=== PATIENT | male | born 1980 | race Caucasian/White ===

== ENCOUNTER 2020-01-31 14:15 | Emergency (ER) | payer BC, SELFPAY ==
--- NOTE | 2020-01-31 14:12 | ECG_ITS ---
APPROVED REPORT Exam: Resting ECG HR:92 bpm ECG Measurements Heart Rate 92 AXES UT 148 P 55 QRSd 106 QRS 29 QT 356 T 21 QTc 440 <Conclusion> Normal sinus rhythm Normal ECG Electronically signed by : Steven Milian, 01/31/2020 17:31:53
[2020-01-31 14:16] VITALS: BP 165/97; PULSE 86; RESP 16; TEMP 36.6; O2SAT 96; BMI 39.4
--- NOTE | 2020-01-31 14:24 | XR_ITS ---
PROCEDURE: XR CHEST PORTABLE CLINICAL HISTORY: chest pain Chest pain, shortness of breath COMPARISON: CT ANGIO CHEST from 01/31/2020 FINDINGS: The cardiomediastinal silhouette and pulmonary vascularity are within normal limits. No lobar consolidation or collapse. Nodular opacity is present in the left mid lower lung zone at 10 mm but not readily apparent on the CT scan. There is a 5 mm nodular opacity in the left lower lobe which may account for part of this finding. This could also be due to an artifact from of monitor lead as a similar density is noted in the right upper chest. No acute bony abnormalities. IMPRESSION: No acute findings. Dictated by: Theodore Moran MD 01/31/2020 16:01 Electronically signed by Theodore Moran MD in [place] 01/31/2020 16:01
[2020-01-31 14:33] VITALS: BP 157/92; BP 170/97
--- NOTE | 2020-01-31 14:34 | CT_ITS ---
PROCEDURE: CT ANGIO CHEST CLINCIAL INDICATION: r/o dissection Shortness of air, chest pain COMPARISON: No exams were available for comparison TECHNIQUE: IV Contrast: 70ML OPTIRAY 350 Axial images obtained with sagittal and coronal reformats. All CT scans at the facility use one or more dose reduction, viz: automated exposure control, ma/kV adjustment per patient size (including targeted exams where dose is matched to indication, i.e. head), or iterative reconstruction technique. FINDINGS: HEART AND MEDIASTINAL STRUCTURES: No evidence of aortic aneurysm or dissection. No central pulmonary embolus apparent. No mediastinal or hilar mass or adenopathy LUNGS AND PLEURAL SPACES: There is minimal nodular thickening of the major fissure centrally nonspecific. No lobar consolidation or collapse. There is a 5 mm noncalcified left upper lobe nodule BONY STRUCTURES: Mild degenerative changes are present in the thoracic spine. No acute bony findings. UPPER ABDOMEN: There are multiple gallstones present. There is mild splenomegaly at 14 cm ADDITIONAL FINDINGS: No other significant abnormalities. IMPRESSION: 1. No acute thoracic findings. No evidence of aortic dissection 2. Cholelithiasis Dictated by: Theodore Moran MD 01/31/2020 15:16 Electronically signed by Theodore Moran MD in [facility] 01/31/2020 15:16
--- NOTE | 2020-01-31 14:40 | PC.NURSE ---
Pt to rad.
[2020-01-31 14:43] LABS: Basophils # 0.1 K/mm3 (0-0.2); Basophils % 0.9 % (0.1-2.0); Eosinophils # 0.2 K/mm3 (0.0-0.4); Eosinophils % 2.1 % (0.1-12.0); Hematocrit 47.5 % (42.0-52.0); Hemoglobin 16.2 g/dL (14.1-18.0); Lymphocytes # 6.5 K/mm3 (0.7-4.5); Lymphocytes % 58.5 % (10-50); Mean Corpuscular HGB Conc 34.2 g/dL (31.8-35.4); Mean Corpuscular Hemoglobin 30.8 pg (27.0-31.2); Mean Corpuscular Volume 90.1 fl (80-94); Mean Platelet Volume 7.6 fl (7.4-10.4); Monocytes # 4.2 K/mm3 (0.1-1.0); Monocytes % 37.6 % (1.7-9.3); Neutrophils # 0.1 K/mm3 (1.8-7.8); Neutrophils % 0.9 % (37.0-80.0); Platelet Count 291 K/mm3 (142-424); Red Blood Count 5.27 M/mm3 (4.60-6.20); Red Cell Distribution Width 12.9 % (11.5-17.5); White Blood Count 11.1 K/mm3 (4.8-10.8)
[2020-01-31 14:47] LABS: MANUAL DIFFERENTIAL MANUAL DIFFERENTIAL (MANUAL DIFF)
[2020-01-31 14:52] LABS: Lymphocytes % 24 % (10-50); Monocytes % 2 % (2-9); Neutrophils % 74 % (42-76); Platelet Estimate Normal; RBC Morphology Normal; Total Cells Counted 100
--- NOTE | 2020-01-31 14:59 | PC.NURSE ---
Pt returned from rad.
[2020-01-31 15:02] VITALS: BP 147/83; PULSE 85; O2SAT 96
[2020-01-31 15:02] LABS: Anion Gap 14.9 mEq/L (5-15); Blood Urea Nitrogen 9 mg/dl (9-20); Calcium 9.5 mg/dl (8.4-10.2); Carbon Dioxide 27 mmol/L (22.0-30.0); Chloride 101 mmol/L (98-107); Creatinine Clearance Estimated 217 mL/min (50-200); Estimated Glomerular Filt Rate 107 ml/min (>60); GFR (African American) 130 ML/MIN (>60); Glucose 142 mg/dl (74-100); Potassium 3.9 mmoL/L (3.5-5.1); Sodium 139 mmol/L (136-145)
--- NOTE | 2020-01-31 15:06 | [facility]H.EDCP ---
ED Disposition Clinical Impression: Chest pain, atypical Disposition: Home, Self-Care Condition on Discharge: Fair Instructions: DI for Atypical Chest Pain Additional Instructions: Have been evaluated for chest pain. Please follow-up with your primary care doctor this week. It is very important that you see a grain miller helper within the next few days. It does not appear that you are having a heart attack right now, but I do have concern that you have coronary artery disease. Please take Tylenol and ibuprofen. Return to the emergency department at once if you have any new or worsening chest pain. Referrals: Fausto Ayala [Primary Care Provider] - Time of Disposition: 17:35 - Critical Care Critical Care Time: No Attestation: On 01/31/20, the high probability of a clinically significant, sudden or life threatening deterioration of the following system(s) required my full and direct attention, intervention and personal management. The time I documented below is in addition to time spent performing reported procedures but includes the following listed in this critical care notation. Medical Decision Making - Hitesh Inquiry Pt receiving controlled substance: No Vital Signs: 01/31/20 14:16 01/31/20 14:33 01/31/20 15:02 Temperature 98 F Temperature Source Oral Pulse Rate [Left Radial] 86 85 Respiratory Rate 16 Blood Pressure [Left Arm] 157/92 H 147/83 H Blood Pressure [Right Arm] 165/97 H 170/97 H Blood Pressure Mean [Left Arm] 113 104 Blood Pressure Mean [Right Arm] 119 121 Blood Pressure Source [Left Arm] Automatic Cuff Blood Pressure Position [Left Arm] Sitting Blood Pressure Position [Right Arm] Sitting Sitting 02 Sat by Pulse Oximetry 96 96 Oxygen Delivery Method Room Air Room Air 01/31/20 16:03 01/31/20 16:51 Temperature Temperature Source Pulse Rate [Left Radial] 84 73 Respiratory Rate Blood Pressure [Left Arm] 124/61 144/80 H Blood Pressure [Right Arm] Blood Pressure Mean [Left Arm] 82 101 Blood Pressure Mean [Right Arm] Blood Pressure Source [Left Arm] Automatic Cuff Automatic Cuff Blood Pressure Position [Left Arm] Sitting Sitting Blood Pressure Position [Right Arm] 02 Sat by Pulse Oximetry 99 98 Oxygen Delivery Method Room Air Room Air - Lab Data Lab Results 01/31/20 14:30: WBC 11.1 H, RBC 5.27, Hgb 16.2, Hct 47.5, MCV 90.1, MCH 30.8, MCHC 34.2, RDW 12.9, Plt Count 291, MPV 7.6, Neut % (Auto) 0.9 L, Lymph % (Auto) 58.5 H, [place] % (Auto) 37.6 H, Eos % (Auto) 2.1, Baso % (Auto) 0.9, Neut # (Auto) 0.1 L*, Lymph # (Auto) 6.5 H, [place] # (Auto) 4.2 H, Eos # (Auto) 0.2, Baso # (Auto) 0.1, Total Counted 100, Neutrophils % (Manual) 74, Lymphocytes % (Manual) 24, Monocytes % (Manual) 2, Differential Comment , Platelet Estimate Normal, RBC Morphology Normal 01/31/20 14:30: Sodium 139, Potassium 3.9, Chloride 101, Carbon Dioxide 27, Anion Gap 14.9, BUN 9, Creatinine 0.80, Estimated Creat Clear 217, Estimated GFR 107, Est GFR ( Amer) 130, Glucose 142 H, Calcium 9.5, Troponin I < 0.01 01/31/20 14:30: Monoscreen Negative 01/31/20 16:34: Troponin I < 0.01 Result diagrams: 01/31/20 14:30 01/31/20 14:30 Orders (Tests/Meds): ED MEDICATIONS Discontinued Medications Generic Name Dose Route Start Last Admin Trade Name Freq PRN Reason Stop Dose Admin Aspirin 324 mg 01/31/20 15:13 01/31/20 15:26 Aspirin 81mg Chewable Tablet PO 01/31/20 15:14 324 mg ONCE ONE Administration Ioversol 100 ml 01/31/20 14:55 01/31/20 14:56 Rad-Optiray 350 100ml Vial IV 01/31/20 14:56 100 ml ONCE ONE Administration Protocol Sodium Chloride 50 ml 01/31/20 14:55 01/31/20 14:56 Rad-Ns 50ml Vial IV 01/31/20 14:56 50 ml ONCE ONE Administration Sodium Chloride 10 ml 01/31/20 14:55 01/31/20 14:56 Rad-Saline Flush 10ml Syringe IV 01/31/20 14:56 10 ml ONCE ONE Administration ORDERS Category Date Time Status Troponin I Q3H Lab 01/31/20 20:30 O
[2020-01-31 15:17] LABS: Troponin I < 0.01 ng/ml (0.00-0.034)
--- NOTE | 2020-01-31 15:35 | PC.NURSE ---
notified rad of new blood work on pt ordered per ER MD
[2020-01-31 15:53] LABS: Monoscreen (Rapid) Negative (Negative)
[2020-01-31 16:03] VITALS: BP 124/61; PULSE 84; O2SAT 99
[2020-01-31 16:51] VITALS: BP 144/80; PULSE 73; O2SAT 98
[2020-01-31 17:15] LABS: Troponin I < 0.01 ng/ml (0.00-0.034)
[2020-01-31 17:53] VITALS: BP 123/74; PULSE 69; RESP 16; TEMP 36.6; O2SAT 98
== END 2020-01-31 17:55 | disposition home or self-care (01) ==
PROVIDERS: Emergency Provider Emergency Medicine; PCP Family Medicine
DX: R07.89 Other chest pain (principal); I10 Essential (primary) hypertension; Z87.891 Personal history of nicotine dependence; Z79.899 Other long term (current) drug therapy
CPT/HCPCS: 71045; 71275; 80048; 84484; 85007; 85025; 86318; 93005; 99284; Q9967

== ENCOUNTER 2021-05-27 14:15 | Emergency (ER) | payer OTHER, SELFPAY ==
--- NOTE | 2021-05-27 14:15 | ECG_ITS ---
APPROVED REPORT Exam: Resting ECG HR:76 bpm ECG Measurements Heart Rate 76 AXES PA 154 P 49 QRSd 102 QRS 40 QT 378 T 28 QTc 425 Conclusion Normal sinus rhythm Late R wave progression, unchanged from prior Abnormal ECG Electronically signed by : Parth Mcnair MD 05/29/2021 17:51:03
[2021-05-27 14:21] VITALS: BP 121/73; PULSE 83; RESP 16; TEMP 36.6; O2SAT 97; BMI 37.3
--- NOTE | 2021-05-27 14:23 | XR_ITS ---
PROCEDURE: XR CHEST PORTABLE CLINICAL HISTORY: cp COMPARISON: CR XR CHEST PORTABLE from 01/31/[address] ANGIO CHEST from 01/31/2020 FINDINGS: The cardiomediastinal silhouette and pulmonary vascularity are within normal limits. The lungs are clear without infiltrates, suspicious nodules, or pleural effusions. There is elevation of the right hemidiaphragm. No acute bony findings. IMPRESSION: No acute findings. Dictated by: Theodore Moran MD 05/27/2021 14:49 Theodore Moran MD in [place] 05/27/2021 14:49
[2021-05-27 14:38] LABS: Basophils # 0.1 K/mm3 (0-0.2); Eosinophils # 0.2 K/mm3 (0.0-0.4); Eosinophils % 2.2 % (0.1-12.0); Hematocrit 40.4 % (42.0-52.0); Hemoglobin 13.7 g/dL (14.1-18.0); Lymphocytes # 4.9 K/mm3 (0.7-4.5); Lymphocytes % 59.2 % (10-50); Mean Corpuscular Hemoglobin 30.8 pg (27.0-31.2); Mean Corpuscular Volume 90.6 fl (80-94); Neutrophils # 0.1 K/mm3 (1.8-7.8); Platelet Count 313 K/mm3 (142-424); Red Blood Count 4.46 M/mm3 (4.60-6.20); Red Cell Distribution Width 12.9 % (11.5-17.5); White Blood Count 8.2 K/mm3 (4.8-10.8)
[2021-05-27 14:40] LABS: Neutrophils % 0.6 % (37.0-80.0)
[2021-05-27 14:42] LABS: MANUAL DIFFERENTIAL MANUAL DIFFERENTIAL (MANUAL DIFF)
[2021-05-27 14:44] LABS: Chloride 107 mmol/L (98-107); Sodium 142 mmol/L (136-145)
[2021-05-27 14:46] LABS: Blood Urea Nitrogen 14 mg/dl (9-20); Creatinine Clearance Estimated 203 mL/min (50-200); Estimated Glomerular Filt Rate 107 ml/min (>60); GFR (African American) 129 ML/MIN (>60)
[2021-05-27 14:47] LABS: Alanine Aminotransferase 23 U/L (12-78); Albumin Level 4.4 g/dl (3.5-5.0); Albumin/Globulin Ratio 1.4 (1.1-1.8); Alkaline Phosphatase 59 U/L (38-126); Aspartate Amino Transferase 28 U/L (17-59); Bilirubin,Total 0.4 mg/dl (0.2-1.3); Calcium 9.1 mg/dl (8.4-10.2); Carbon Dioxide 25 mmol/L (22.0-30.0); Globulin 3.1 g/dL (1.3-3.2); Glucose 142 mg/dl (74-100); Total Protein,Serum 7.5 g/dl (6.3-8.2)
--- NOTE | 2021-05-27 14:49 | HMH.EDGENADL ---
ED Disposition Clinical Impression: Atypical chest pain Disposition: Home, Self-Care Condition on Discharge: Good Additional Instructions: Follow-up with your audiometrist in the next few days. Return to emergency department chest pain, shortness of breath. Referrals: Provider,Referral, [Primary Care Provider] - 3 days Time of Disposition: 15:20 - Critical Care Critical Care Time: No Attestation: On , the high probability of a clinically significant, sudden or life threatening deterioration of the following system(s) required my full and direct attention, intervention and personal management. The time I documented below is in addition to time spent performing reported procedures but includes the following listed in this critical care notation. Medical Decision Making - Medical Records Medical records reviewed: Yes: I reviewed the patient's medical records. - Hitesh Inquiry Pt receiving controlled substance: No Vital Signs: 05/27/21 14:21 Temperature 97.8 F Temperature Source Oral Pulse Rate [Right Radial] 83 Respiratory Rate 16 Blood Pressure [Right Arm] 121/73 Blood Pressure Mean [Right Arm] 89 Blood Pressure Source [Right Arm] Automatic Cuff Blood Pressure Position [Right Arm] Sitting 02 Sat by Pulse Oximetry 97 Oxygen Delivery Method Room Air - Lab Data Lab results reviewed: Yes: I reviewed the patient's lab results. Lab Results 05/27/21 14:30: WBC 8.2, RBC 4.46 L, Hgb 13.7 L, Hct 40.4 L, MCV 90.6, MCH 30.8, MCHC 34.0, RDW 12.9, Plt Count 313, MPV 8.0, Neut % (Auto) 0.6 L, Lymph % (Auto) 59.2 H, [place] % (Auto) 37.0 H, Eos % (Auto) 2.2, Baso % (Auto) 1.0, Neut # (Auto) 0.1 L*, Lymph # (Auto) 4.9 H, [place] # (Auto) 3.0 H, Eos # (Auto) 0.2, Baso # (Auto) 0.1, Total Counted 100, Neutrophils % (Manual) 77 H, Lymphocytes % (Manual) 20, Monocytes % (Manual) 2, Eosinophils % (Manual) 1, Platelet Estimate Normal, RBC Morphology Normal 05/27/21 14:30: Sodium 142, Potassium 4.0, Chloride 107, Carbon Dioxide 25, Anion Gap 14.0, BUN 14, Creatinine 0.80, Estimated Creat Clear 203, Estimated GFR 107, Est GFR ( Amer) 129, Glucose 142 H, Calcium 9.1, Total Bilirubin 0.4, AST 28, ALT 23, Alkaline Phosphatase 59, Troponin I < 0.01, Total Protein 7.5, Albumin 4.4, Globulin 3.1, Albumin/Globulin Ratio 1.4 Result diagrams: 05/27/21 14:30 05/27/21 14:30 - Radiology Data #1 Image(s): Chest Image Reviewed: Yes I reviewed the patient's radiology results Preliminary Findings: Normal/NAD - ECG Data Tracing #1 I reviewed this ECG and interpreted as documented below: Normal sinus rhythm, 76 bpm, no ST elevation or depression, no ectopy, normal intervals. ECG initial impression date: 05/27/21 ECG initial impression time: 14:20 - DESIRE Score for Non-Stemi Age of Patient: 40-49 years old Heart Rate: 70-89 bpm Systolic Blood Pressure: 120-139 mmhg Serum Creatinine: 0.80-1.19 mg/dl CHF [place] Class: IV-Cardiogenic Shock Other Risk Factors: None Non-Stemi Risk Score: 134 Medical Decision Narrative: 40yo M evaluated for chest pain. Patient no acute distress on initial evaluation. Differential diagnosis includes but not limited to: ACS/[place], pneumonia, GERD, emotional disturbance/anxiety, pneumothorax, aortic injury. Heart score is 2. Patient is established with a audiometrist. Laboratory studies are unremarkable. EKG is unremarkable as above. Patient is appropriate and stable for discharge home. General Adult HPI - General Chief complaint: Chest Pain Stated complaint: chest pain Time Seen by Provider: 05/27/21 14:35 Mode of Arrival: Ambulatory Limitations: No Limitations Description of Symptoms (Recalled from ER Triage Doc. 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 Pt states pain lasted approx only 5 minutes. Pt denies chest pain upon arrival to ED. - History of Present Illness HPI narrative: 40yo M presents
[2021-05-27 14:56] LABS: Eosinophils % 1 % (0-3); Lymphocytes % 20 % (10-50); Monocytes % 2 % (2-9); Neutrophils % 77 % (42-76); Platelet Estimate Normal; RBC Morphology Normal; Total Cells Counted 100
[2021-05-27 15:02] LABS: Troponin I < 0.01 ng/ml (0.00-0.034)
[2021-05-27 15:25] VITALS: BP 121/73; PULSE 83; RESP 16; TEMP 36.6; O2SAT 97
== END 2021-05-27 15:25 | disposition home or self-care (01) ==
PROVIDERS: Emergency Provider Family Medicine
DX: R07.89 Other chest pain (principal); I10 Essential (primary) hypertension; I25.10 Atherosclerotic heart disease of native coronary artery without angina pectoris
CPT/HCPCS: 71045; 80053; 84484; 85007; 85025; 93005; 99283

== ENCOUNTER 2022-07-03 09:52 | Emergency (ER) | payer OTHER, SELFPAY ==
[2022-07-03 10:55] VITALS: BP 151/95; PULSE 74; RESP 21; TEMP 36.9; O2SAT 100; BMI 43.0
[2022-07-03 11:18] LABS: UTC Influenza A Antigen Negative (Negative); UTC Strep Screen (Rapid) Negative (Negative)
[2022-07-03 11:19] LABS: UTC Influenza B Antigen Negative (Negative)
--- NOTE | 2022-07-03 11:29 | EXP.UTC ---
Discharge Plan Disposition Patient Disposition: Home, Self-Care Condition: Good Prescriptions Prescriptions: New nystatin 100,000 unit/mL suspension 4 ml PO QID 10 Days Qty: 160 0RF Rx Instructions: 4 ml in mouth swish and spit azithromycin [Zithromax Z-Claus] 250 mg tablet See Rx Instructions .ROUTE .COMPLEX 5 Days Qty: 6 0RF Rx Instructions: For 250 mg dose pack: take 500 mg today (day 1), then 250 mg for 4 days (days 2-5) methylprednisolone [Medrol (Claus)] 4 mg tablets,dose pack See Rx Instructions .Route .COMPLEX 6 Days Qty: 21 0RF Rx Instructions: taper pack; No Action metoprolol succinate 200 mg tablet extended release 24 hr 200 mg PO DAILY Label Comments: TAKE 1 TABLET BY MOUTH ONCE DAILY amlodipine-benazepril 10-20 mg capsule 1 cap PO DAILY Label Comments: TAKE 1 CAPSULE BY MOUTH ONCE DAILY rosuvastatin 20 mg tablet 20 mg PO DAILY Label Comments: TAKE 1 TABLET BY MOUTH ONCE DAILY Referrals Follow up/Referrals: Provider,Referral, MD [Primary Care Provider] - See instructions Activity Restrictions/Add. Instructions Additional Instructions/Restrictions: Start antibiotic today. Be sure to complete entire prescription even if feeling better Humidifier/vaporizer or hot steamy shower Mucinex during the day for your cough and cough suppressant only at night. Be sure to drink lots of water. Insurance may not cover a prescriptions for mucinex. Might be cheaper to get 400mg tablets and take 2 tablet in the morning, mid-day and evening with lots of water. Use Nystatin oral as prescribed swish and spit *Start steroid today. Helps with inflammation therefore, cough and wheezing. Follow directions on the package. Reviewed side effects. Patient reports taking them before. Follow up IMMEDIATELY for new or worsening of symptoms OR no noticeable improvement over the next 48-72 hours. 911 immediately for any life threatening symptoms such as chest pain or difficulty breathing Clinical Impressions Clinical Impression: Sinusitis Qualifiers: Sinusitis location: unspecified location Chronicity: unspecified Qualified Code(s): J32.9 - Chronic sinusitis, unspecified Instructions Patient Instructions: Sinusitis, DI for Sinusitis, DI for Thrush Discharge ED Provider: Nicole Ny [facility] [place] General Stated complaint: Congestion,Sore throat,Headache Mode of Arrival: Ambulatory Source of Information: Patient Limitations: No Limitations Time Seen by Provider: 07/03/22 11:29 Description of Symptoms (Recalled from Triage Doc. by RN): PATIENT C/O HEAD AND CHEST CONGESTION, SORE MOUTH, SWOLLEN TONGUE, AND HEADACHE THAT STARTED WEDNESDAY HEENT Symptoms (Recalled from RN notes): Yes Resp Symptoms (Recalled from RN notes): No Skin Symptoms (Recalled from RN notes): No MS Symptoms (Recalled from RN notes): No Functional Status (Recalled from RN notes): WNL History of Present Illness Provider Complaint: Patient states that he started feeling bad last week with sinus infection States that he has continued to get worse States that he noticed for the last couple of days burning like sensation in his mouth and on his tongue with white patchy like areas on his tongue and today felt like it was trying to move into his chest Related Data Home Medications Medication Instructions Recorded Confirmed amlodipine 10 mg-benazepril 20 mg 1 cap PO DAILY Hypertension 07/03/22 07/03/22 capsule metoprolol succinate 200 mg 200 mg PO DAILY Hypertension 07/03/22 07/03/22 tablet,extended release 24 hr rosuvastatin 20 mg tablet 20 mg PO DAILY Cholesterol 07/03/22 07/03/22 Previous Rx's Medication Instructions Recorded azithromycin 250 mg tablet See Rx Instructions PO .COMPLEX 5 07/03/22 (Zithromax Z-Claus) days #6 tabs methylprednisolone 4 mg tablets in See Rx Instructions .Route 07/03/22 a dose pack (Medrol (Claus)) .COMPLEX 6 days #21
[2022-07-03 11:51] VITALS: BP 151/95; PULSE 74; RESP 21; TEMP 36.9; O2SAT 100
== END 2022-07-03 11:53 | disposition home or self-care (01) ==
PROVIDERS: Emergency Provider Nurse Practitioner
DX: J32.9 Chronic sinusitis, unspecified (principal)
CPT/HCPCS: 87804; 87880; 99212; G0463

== ENCOUNTER 2024-01-07 13:47 | Emergency (ER) | payer BC, SELFPAY ==
--- NOTE | 2024-01-07 13:42 | ECG_ITS ---
APPROVED REPORT Exam: Resting ECG HR:104 bpm ECG Measurements Heart Rate 104 AXES AR 116 P 63 QRSd 104 QRS 62 QT 350 T -12 QTc 411 Conclusion SINUS TACHYCARDIA WITH SHORT AR INTERVAL INFERIOR MYOCARDIAL INFARCTION , OF INDETERMINATE AGE [40+ ms Q WAVE AND/OR ST/T ABNORMALITY IN II/aVF] ABNORMAL ECG UNCONFIRMED REPORT Electronically signed by : GIOVANI VIEIRA, 01/08/2024 06:01:33
[2024-01-07 13:50] VITALS: BP 150/84; PULSE 106; RESP 18; TEMP 36.7; O2SAT 97; BMI 44.7
--- NOTE | 2024-01-07 14:03 | EXP.UTC ---
Discharge Plan Disposition Patient Disposition: Home, Self-Care Condition: Good Prescriptions Prescriptions: No Action metoprolol succinate 200 mg tablet extended release 24 hr 200 mg PO DAILY Patient Comments: TAKE 1 TABLET BY MOUTH ONCE DAILY amlodipine-benazepril 10-20 mg capsule 1 cap PO DAILY Patient Comments: TAKE 1 CAPSULE BY MOUTH ONCE DAILY rosuvastatin 20 mg tablet 20 mg PO DAILY Patient Comments: TAKE 1 TABLET BY MOUTH ONCE DAILY nystatin 100,000 unit/mL suspension 4 ml PO QID 10 Days Qty: 160 0RF Rx Instructions: 4 ml in mouth swish and spit Referrals Follow up/Referrals: Fausto Ayala MD [Primary Care Provider] - See instructions Activity Restrictions/Add. 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 States he was lying flat on his back, on a creeper, under a vehicle. Had a fluttery feeling in his upper chest. He thought at first it was because he did not eat this morning. The fluttery feeling radiated out towards both shoulders. No chest pain. NO vertigo. No shortness of breath. No neck or jaw pain. No radiation down his arms. He went and had lunch and began to feel a little better. Went back to work and the odd sensation returned. He then called his who told him to seek medical treatment. Fluttery sensation resolved on the way here and has not returned. History of HTN. Is on amlodopine-benazepril and metoprolol. Doesn't think he took those this am. May have had an WI in 2018. States he was under a lot of stress, had chest pain and pressure. PCP thought he may have had a heart attack. Had a stress test and heart cath and cardiology did not think he had a heart attack. Onset (ago): hour(s) (2) Location: chest Relieving factors: none Exacerbating factors: none Associated symptoms: denies other symptoms Treatments prior to arrival: none Related Data Home Medications Medication Instructions Recorded Confirmed amlodipine 10 mg-benazepril 20 mg 1 cap PO DAILY Hypertension 07/03/22 01/07/24 capsule metoprolol succinate 200 mg 200 mg PO DAILY Hypertension 07/03/22 01/07/24 tablet,extended release 24 hr rosuvastatin 20 mg tablet 20 mg PO DAILY Cholesterol 07/03/22 01/07/24 Previous Rx's Medication Instructions Recorded nystatin 100,000 unit/mL oral 4 ml PO QID 10 days #160 mL 07/03/22 suspension Allergies Allergy/AdvReac Type Severity Reaction Status Date / Time No Known Allergies Allergy Verified 01/07/24 14:15 [facility] Disclaimer: The information contained in this section may have been updated after the patient was seen, as this information can be updated by other users. Medical History (Updated 01/07/24 @ 15:48 by NILTON Pritchard) Hyperlipidemia Hypertension Surgical History History of cardiac catheterization Social History Smoking Status: Never smoker alcohol intake: never current occupational status: other Travel in the last 8 weeks: None household members: other housing: other ROS Obtained: Yes All systems reviewed & no additional complaints except as documented Cardiovascular Cardiovascular: Reports as per HPI and Reports palpitations Endocrine Endocrine: Reports palpitations Physical Exam General General appearance: alert and in no apparent distress Head Head exam: atraumatic, normocephalic and normal inspection Eye Eye exam: Present normal appearance, PERRL and EOMI ENT ENT exam: Present normal exam, normal oropharynx, mucous membranes moist, TM's normal bilaterally and normal external ear exam Neck Neck exam: Present normal inspection, full ROM and trachea midline; Absent meningismus or lymphadenopathy Chest Chest inspection: Present normal inspection and symmetric chest wall rise; Absent tenderness Respiratory Respiratory exam: Present normal lung sounds bilaterally; Absent respiratory distress Cardiovascular Cardiovascular exam: Present regular rate and normal rhythm; Absent JVD Abdominal Exam Abdominal exam: Present soft and normal bowel sounds; Absent distention, tenderness or guarding Extremities Exam Extremities exam: Present normal inspection, full ROM and normal capillary refill; Absent calf tenderness Back Exam Back exam: Present normal inspection; Absent tenderness Neurological Exam Neurological exam: Present alert and oriented X3 Psychiatric Psychiatric exam: Present normal affect and normal mood Skin Skin exam: Present warm, dry, intact and normal color Lymphatic Lymphatic Findings: no adenopathy Medical Decision Making Medical Records Medical records reviewed: Yes I reviewed the patient's medical records. Hitesh Inquiry Pt receiving controlled substance: No Lab Data Lab results reviewed: Yes I reviewed the patient's lab results. 01/07/24 14:54 01/07/24 14:54 ECG Data Tracing #1: I reviewed this ECG and interpreted as documented below: ECG initial impression date: 01/07/24 ECG initial impression time: 14:20 ECG normal with no acute: arrhythmias, ischemia, conduction abnormalities, chamber hypertrophy Normal Sinus Rhythm: Yes ECG compared to prior tracings: there are no significant changes
[2024-01-07] MEDS: METOPROLOL SUCCINATE XL 100MG TABLET 200 MG PO (14:47)
--- NOTE | 2024-01-07 14:56 | PC.NURSE ---
Pt stated that he forgot to take his home meds.
--- NOTE | 2024-01-07 14:56 | PC.NURSE ---
Sent blood to lab via tube system
[2024-01-07 15:02] LABS: Basophils # 0.1 K/mm3 (0-0.2); Basophils % 1.1 % (0.1-2.0); Eosinophils # 0.2 K/mm3 (0.0-0.4); Eosinophils % 1.7 % (0.1-12.0); Hematocrit 42.8 % (42.0-52.0); Hemoglobin 14.3 g/dL (14.1-18.0); Lymphocytes # 4.2 K/mm3 (0.7-4.5); Lymphocytes % 47.8 % (10-50); Mean Corpuscular HGB Conc 33.5 g/dL (31.8-35.4); Mean Corpuscular Hemoglobin 29.9 pg (27.0-31.2); Mean Corpuscular Volume 89.2 fl (80-94); Mean Platelet Volume 7.6 fl (7.4-10.4); Monocytes # 4.2 K/mm3 (0.1-1.0); Monocytes % 48.4 % (1.7-9.3); Neutrophils # 0.1 K/mm3 (1.8-7.8); Platelet Count 322 K/mm3 (142-424); Red Cell Distribution Width 14.2 % (11.5-17.5); White Blood Count 8.8 K/mm3 (4.8-10.8)
[2024-01-07 15:07] LABS: Chloride 105 mmol/L (98-107); MANUAL DIFFERENTIAL MANUAL DIFFERENTIAL (MANUAL DIFF); Sodium 138 mmol/L (136-145)
[2024-01-07 15:08] LABS: Potassium 3.9 mmoL/L (3.5-5.1)
[2024-01-07 15:10] LABS: Alanine Aminotransferase 32 U/L (12-78); Albumin Level 4.5 g/dl (3.5-5.0); Albumin/Globulin Ratio 1.3 (1.1-1.8); Alkaline Phosphatase 61 U/L (38-126); Anion Gap 12.9 mEq/L (5-15); Aspartate Amino Transferase 32 U/L (17-59); Bilirubin,Total 0.4 mg/dl (0.2-1.3); Blood Urea Nitrogen 12 mg/dl (9-20); Carbon Dioxide 24 mmol/L (22.0-30.0); Creatinine Clearance Estimated 122 mL/min (50-200); Estimated Glomerular Filt Rate 105 ml/min (>60); GFR (African American) 127 ML/MIN (>60); Globulin 3.4 g/dL (1.3-3.2); Total Protein,Serum 7.9 g/dl (6.3-8.2)
[2024-01-07 15:11] LABS: Calcium 9.1 mg/dl (8.4-10.2); Glucose 208 mg/dl (74-100)
[2024-01-07 15:37] LABS: Troponin I < 0.01 ng/ml (0.00-0.034)
[2024-01-07 15:42] LABS: Thyroid Stimulating Hormone 0.43 uIU/mL (0.465-4.68)
[2024-01-07 15:44] LABS: Lymphocytes % 25 % (10-50); Monocytes % 3 % (2-9); Neutrophils % 72 % (42-76); Platelet Estimate Normal; RBC Morphology Normal; Total Cells Counted 100
--- NOTE | 2024-01-07 16:01 | PC.NURSE ---
Called lab about addition to blood work
[2024-01-07 16:02] VITALS: BP 150/84; PULSE 94; RESP 18; TEMP 36.7; O2SAT 97
[2024-01-07 17:08] LABS: Hemoglobin A1C 5.8 % (4.0-6.0)
== END 2024-01-07 16:02 | disposition home or self-care (01) ==
PROVIDERS: Emergency Provider Physician Assistant; PCP Family Medicine
DX: R00.0 Tachycardia, unspecified (principal); R73.9 Hyperglycemia, unspecified; I10 Essential (primary) hypertension; E78.5 Hyperlipidemia, unspecified
CPT/HCPCS: 80053; 83036; 84443; 84484; 85007; 85025; 93005; 99212; 99214; G0463

== ENCOUNTER 2024-01-18 12:34 | Outpatient (CLI) | payer BC, SELFPAY ==
[2024-01-18 18:58] LABS: Basophils # 0.1 K/mm3 (0-0.2); Eosinophils # 0.2 K/mm3 (0.0-0.4); Eosinophils % 1.7 % (0.1-12.0); Hematocrit 44.6 % (42.0-52.0); Hemoglobin 14.8 g/dL (14.1-18.0); Lymphocytes # 5.1 K/mm3 (0.7-4.5); Lymphocytes % 48.8 % (10-50); Mean Corpuscular HGB Conc 33.2 g/dL (31.8-35.4); Mean Corpuscular Hemoglobin 29.7 pg (27.0-31.2); Mean Corpuscular Volume 89.4 fl (80-94); Mean Platelet Volume 9.5 fl (7.4-10.4); Monocytes % 47.2 % (1.7-9.3); Neutrophils # 0.1 K/mm3 (1.8-7.8); Platelet Count 366 K/mm3 (142-424); Red Blood Count 4.99 M/mm3 (4.60-6.20); Red Cell Distribution Width 14.3 % (11.5-17.5); White Blood Count 10.5 K/mm3 (4.8-10.8)
[2024-01-18 19:15] LABS: Alanine Aminotransferase 25 U/L (12-78); Albumin Level 4.6 g/dl (3.5-5.0); Albumin/Globulin Ratio 1.4 (1.1-1.8); Alkaline Phosphatase 74 U/L (38-126); Anion Gap 18.3 mEq/L (5-15); Aspartate Amino Transferase 32 U/L (17-59); Bilirubin,Total 0.5 mg/dl (0.2-1.3); Blood Urea Nitrogen 16 mg/dl (9-20); Calcium 10.2 mg/dl (8.4-10.2); Carbon Dioxide 23 mmol/L (22.0-30.0); Chloride 104 mmol/L (98-107); Chol/HDL Ratio 4.2 (1-3.5); Cholesterol 147 mg/dl (140-200); Estimated Glomerular Filt Rate 92 ml/min (>60); GFR (African American) 111 ML/MIN (>60); Globulin 3.4 g/dL (1.3-3.2); Glucose 96 mg/dl (74-100); HDL Cholesterol 35 mg/dl (40-60); Potassium 4.3 mmoL/L (3.5-5.1); Sodium 141 mmol/L (136-145); Triglycerides 214 mg/dl (30-150); VLDL Cholesterol 43 mg/dL (0-40)
[2024-01-18 19:20] LABS: Neutrophils % 1.2 % (37.0-80.0)
[2024-01-18 19:22] LABS: MANUAL DIFFERENTIAL MANUAL DIFFERENTIAL (MANUAL DIFF)
[2024-01-18 19:26] LABS: Direct LDL Cholesterol 81.97 mg/dL (100-129)
[2024-01-18 19:37] LABS: 25-OH Vitamin D, Total 35.6 ng/mL (30-100)
[2024-01-18 19:46] LABS: Lymphocytes % 27 % (10-50); Monocytes % 7 % (2-9); Neutrophils % 65 % (42-76); Total Cells Counted 100
[2024-01-18 19:47] LABS: Platelet Estimate Normal; RBC Morphology Normal
[2024-01-18 19:50] LABS: Prostate Specific Ag Screen 0.9 ng/ml (0.0-4.0); Thyroid Stimulating Hormone 0.51 uIU/mL (0.465-4.68)
[2024-01-18 21:52] LABS: Hemoglobin A1C 5.9 % (4.0-6.0)
[2024-01-20 08:32] LABS: Testosterone,Total 197 ng/dL (264-916)
[2024-01-20 18:35] LABS: Peripheral Smear Review Scanned Result
== END 2024-01-18 23:59 | disposition home or self-care (01) ==
LOC: LAB.DROPOF 01-19 12:34
PROVIDERS: PCP Physician Assistant; Visit Provider Physician Assistant
DX: D70.9 Neutropenia, unspecified (principal); R73.9 Hyperglycemia, unspecified; E29.1 Testicular hypofunction; Z79.899 Other long term (current) drug therapy; E66.9 Obesity, unspecified; Z68.41 Body mass index [BMI] 40.0-44.9, adult; Z12.5 Encounter for screening for malignant neoplasm of prostate
CPT/HCPCS: 80053; 80061; 82306; 83036; 84403; 84443; 85007; 85025; G0103

== ENCOUNTER 2024-05-22 11:10 | Outpatient (CLI) | payer BC, SELFPAY ==
[2024-05-22 19:19] LABS: Basophils # 0.1 K/mm3 (0-0.2); Basophils % 1.2 % (0.1-2.0); Eosinophils # 0.2 K/mm3 (0.0-0.4); Eosinophils % 2.5 % (0.1-12.0); Hematocrit 51.9 % (42.0-52.0); Hemoglobin 16.6 g/dL (14.1-18.0); Lymphocytes # 3.9 K/mm3 (0.7-4.5); Mean Corpuscular HGB Conc 32.1 g/dL (31.8-35.4); Mean Corpuscular Hemoglobin 30.2 pg (27.0-31.2); Mean Corpuscular Volume 94.3 fl (80-94); Monocytes # 2.9 K/mm3 (0.1-1.0); Monocytes % 40.5 % (1.7-9.3); Platelet Count 333 K/mm3 (142-424); Red Cell Distribution Width 14.3 % (11.5-17.5); White Blood Count 7.1 K/mm3 (4.8-10.8)
[2024-05-22 19:21] LABS: Carbon Dioxide 24 mmol/L (22.0-30.0); Chloride 106 mmol/L (98-107); Potassium 4.1 mmoL/L (3.5-5.1); Sodium 138 mmol/L (136-145)
[2024-05-22 19:22] LABS: Alanine Aminotransferase 43 U/L (12-78); Albumin Level 4.8 g/dl (3.5-5.0); Albumin/Globulin Ratio 1.6 (1.1-1.8); Alkaline Phosphatase 58 U/L (38-126); Anion Gap 12.1 mEq/L (5-15); Aspartate Amino Transferase 41 U/L (17-59); Bilirubin,Total 0.7 mg/dl (0.2-1.3); Blood Urea Nitrogen 6 mg/dl (9-20); Calcium 10.1 mg/dl (8.4-10.2); Chol/HDL Ratio 4.2 (1-3.5); Cholesterol 114 mg/dl (140-200); Estimated Glomerular Filt Rate 92 ml/min (>60); GFR (African American) 111 ML/MIN (>60); Glucose 69 mg/dl (74-100); HDL Cholesterol 27 mg/dl (40-60); Total Protein,Serum 7.8 g/dl (6.3-8.2); Triglycerides 198 mg/dl (30-150); VLDL Cholesterol 40 mg/dL (0-40)
[2024-05-22 19:32] LABS: Direct LDL Cholesterol 59.51 mg/dL (100-129)
[2024-05-22 19:51] LABS: Thyroid Stimulating Hormone 0.67 uIU/mL (0.465-4.68)
[2024-05-22 20:21] LABS: Neutrophils % 0.7 % (37.0-80.0)
[2024-05-22 20:22] LABS: Neutrophils # 0.1 K/mm3 (1.8-7.8)
[2024-05-22 20:23] LABS: MANUAL DIFFERENTIAL MANUAL DIFFERENTIAL (MANUAL DIFF)
[2024-05-22 21:30] LABS: Eosinophils % 1 % (0-3); Lymphocytes % 27 % (10-50); Monocytes % 8 % (2-9); Neutrophils % 62 % (42-76); Total Cells Counted 100
[2024-05-22 21:31] LABS: Platelet Estimate Normal; RBC Morphology Normal
[2024-05-22 21:42] LABS: HIV (1&2) Antibody Rapid NONREACTIVE (NONREACTIVE)
[2024-05-24 06:28] LABS: HCV Ab Non Reactive (Non Reactive)
[2024-05-24 08:22] LABS: Testosterone,Total 581 ng/dL (264-916)
== END 2024-05-22 23:59 | disposition home or self-care (01) ==
LOC: LAB.DROPOF 05-23 11:11
PROVIDERS: PCP Family Medicine; Visit Provider Family Medicine
DX: R79.89 Other specified abnormal findings of blood chemistry (principal); I10 Essential (primary) hypertension; E78.5 Hyperlipidemia, unspecified; Z11.59 Encounter for screening for other viral diseases
CPT/HCPCS: 80050; 80053; 80061; 84403; 84443; 85007; 85025; 86803; 87389

== ENCOUNTER 2024-05-25 06:21 | Outpatient (CLI) | payer BC, SELFPAY ==
--- NOTE | 2024-05-25 | CA_ITS ---
APPROVED REPORT Exam: Exercise Treadmill Technologist: Lyssa Whitley, Ht: 5 ft 11 in Wt: 299 lbs BSA: 2.50 m2 HR: 76 bpm BP: 153/92 mmHg Rhythm: Nsr, ST-T abns in leads III, aVF Medical History Medical History: HTN, Hyperlipidemia Medications: Metoprolol Succinate,,,,, Testosterone Cypionate,,,,, Allergies: No known drug allergies Cardiac Risk Factors: HTN, Hyperlipidemia Stress Test Details Test: Shailesh HR Resting HR: 79 bpm Max Heart Rate (APMHR): 176 bpm Max HR Achieved: 160 bpm Target HR (85% APMHR): 150 bpm % of APMHR: 91 Recovery HR: 99 bpm BP Resting BP: 153/92 mmHg Max BP: 210/80 mmHg Recovery BP: 140.0/75.0 mmHg ECG Resting ECG: Nsr, ST-T abns in leads III, aVF Stress EC mm upsloping ST depression Arrhythmia: None Recovery ECG: Return to baseline within 3 minutes of recovery Recovery Arrhythmia: None Clinical Exercise duration: 08:46 min Highest Stage Achieved: Exercise capacity: 10.1 METs Overall Exercise Capacity for Age: Average Stress ECG Conclusion Pt exercised 8:46 on shailesh protocol Max HR: 160 % of PM: 91% Max BP: 210/80 Mets: 10.1 Test stopped due to: Dyspnea and generalized fatigue No cp Approx [address] depression Conclusion: Equivocal EKG changes without chest pain at peak stress Myoview images reported separately Test Summary REST . . . . . . . Sitting REST 06:12 0.0 0.0 79 . 153/ 92 . . Stage 1 01:00 10.0 1.7 103 . . . . Stage 1 02:00 10.0 1.7 106 . . . . Stage 1 03:00 10.0 1.7 112 . 178/ 80 . . Stage 2 01:00 12.0 2.5 122 . . . . Stage 2 02:00 12.0 2.5 129 . . . . Stage 2 03:00 12.0 2.5 136 . 210/ 80 . . Stage 3 01:00 14.0 3.4 145 . . . . Stage 3 02:00 14.0 3.4 152 . . . . Stage 3 02:46 14.0 3.4 159 . . . Stop exercise at 08:46 RECOVERY 01:00 0.0 0.0 143 . . . . RECOVERY 02:00 0.0 0.0 129 . . . . RECOVERY 03:00 0.0 0.0 118 . . . . RECOVERY 04:00 0.0 0.0 106 . . . . RECOVERY 05:00 0.0 0.0 99 . 169/ 81 . . RECOVERY 05:57 0.0 0.0 102 . 140/ 75 . . Electronically signed by : Yani Freeman MD 05/25/2024 12:43:01
--- NOTE | 2024-05-25 06:25 | NM_ITS ---
APPROVED REPORT Exam: Nuclear Stress Test Indication: fatigue Patient Location: Outpatient Stress Tech: Lyssa Whitley [place] Tech:Jillian KaurHENRY RT(R)(N) Ht: 5 ft 10 in Wt: 291 lbs HR: 79 bpm BP: 153/92 mmHg BSA: 2.45 m2 Rhythm: NSR TID: 1.16 BMI: 41.7 History: fatigue Procedure: Patient exercised on Raji protocol 8:46 minutes and sec, resting heart rate 76 bpm, resting blood pressure 153/92 mmHg, with exercise maximum heart rate achived was 160 bpm which is 91 % of the maximum predicted heart rate and blood pressure was 210/80 mmHg. Test was stopped due to fatigue. Patient denied any complaint of chest pain. Patient has Average exercise capacity, achieved 10.1 METs of workload on treadmill, the blood pressure response to exercise was hypertensive. Cardiac Stress and Resting SPECT Images: Cardiac Stress and Resting SPECT images were obtained using technetium 99m Myoview 30.3 mCi stress and 10.50 mCi at rest. Resting and stress imaging in supine and prone positions demonstrate no evidence of fixed or reversible perfusion defects. Gated imaging demonstrates normal global and regional LV systolic function. LVEF is calculated at 52%. Conclusion: No evidence of fixed or reversible perfusion defects. Gated imaging demonstrates normal global and regional LV systolic function. LVEF is calculated at 52%. Of note, the patient had an exaggerated hypertensive BP response to exercise (max BP 210/80 mmHg at peak stress). BP control is suggested. Electronically signed by : Yani Freeman MD 05/25/2024 12:44:45
[2024-05-25] MEDS: ISOTOPE MYOVIEW (PER STUDY) 1 DOSE IV (10:23)
[2024-05-25] MEDS: SODIUM CHLORIDE 0.9% 10ML SYR (RAD ONLY) 10 ML IV ×2 (10:23)
== END 2024-05-25 23:59 | disposition home or self-care (01) ==
LOC: RAD 06:22
PROVIDERS: PCP Family Medicine; Visit Provider Family Medicine
DX: I25.10 Atherosclerotic heart disease of native coronary artery without angina pectoris (principal)
CPT/HCPCS: 78452; 93017; 93018; A9502

== ENCOUNTER 2024-11-27 10:19 | Outpatient (CLI) | payer OTHER, SELFPAY ==
[2024-11-27 17:34] LABS: Basophils # 0.1 K/mm3 (0-0.2); Basophils % 0.8 % (0.1-2.0); Eosinophils # 0.2 K/mm3 (0.0-0.4); Eosinophils % 2.4 % (0.1-12.0); Hematocrit 49.5 % (42.0-52.0); Hemoglobin 16.6 g/dL (14.1-18.0); Lymphocytes # 2.2 K/mm3 (0.7-4.5); Lymphocytes % 22.4 % (10-50); Mean Corpuscular HGB Conc 33.5 g/dL (31.8-35.4); Mean Corpuscular Hemoglobin 29.7 pg (27.0-31.2); Mean Corpuscular Volume 88.7 fl (80-94); Monocytes # 0.9 K/mm3 (0.1-1.0); Monocytes % 8.6 % (1.7-9.3); Neutrophils # 6.4 K/mm3 (1.8-7.8); Neutrophils % 65.4 % (37.0-80.0); Platelet Count 336 K/mm3 (142-424); Red Blood Count 5.58 M/mm3 (4.60-6.20); Red Cell Distribution Width 13.1 % (11.5-17.5); White Blood Count 9.8 K/mm3 (4.8-10.8)
[2024-11-27 18:24] LABS: Alanine Aminotransferase 26 U/L (12-78); Albumin Level 4.6 g/dl (3.5-5.0); Albumin/Globulin Ratio 1.5 (1.1-1.8); Alkaline Phosphatase 60 U/L (38-126); Anion Gap 16.7 mEq/L (5-15); Aspartate Amino Transferase 32 U/L (17-59); Bilirubin,Total 0.9 mg/dl (0.2-1.3); Blood Urea Nitrogen 10 mg/dl (9-20); Calcium 9.8 mg/dl (8.4-10.2); Carbon Dioxide 23 mmol/L (22.0-30.0); Chloride 105 mmol/L (98-107); Chol/HDL Ratio 5.8 (1-3.5); Cholesterol 157 mg/dl (140-200); Estimated Glomerular Filt Rate 81 ml/min (>60); GFR (African American) 98 ML/MIN (>60); Globulin 3.1 g/dL (1.3-3.2); Glucose 84 mg/dl (74-100); HDL Cholesterol 27 mg/dl (40-60); Potassium 4.7 mmoL/L (3.5-5.1); Sodium 140 mmol/L (136-145); Total Protein,Serum 7.7 g/dl (6.3-8.2); Triglycerides 216 mg/dl (30-150); VLDL Cholesterol 43 mg/dL (0-40)
[2024-11-27 18:34] LABS: Direct LDL Cholesterol 81.09 mg/dL (100-129)
[2024-12-01 11:12] LABS: Testosterone,Free 3.4 pg/mL (6.8-21.5)
== END 2024-11-27 23:59 | disposition home or self-care (01) ==
LOC: LAB.DROPOF 11-28 14:04
PROVIDERS: PCP Family Medicine; Visit Provider Family Medicine
DX: R79.89 Other specified abnormal findings of blood chemistry (principal); I10 Essential (primary) hypertension; E78.5 Hyperlipidemia, unspecified
CPT/HCPCS: 80053; 80061; 83036; 84402; 85025